=== PATIENT | female | born 1950 | race Caucasian/White ===

== ENCOUNTER 2017-02-21 16:41 | Emergency (ER) | payer MEDICARE, BC ==
[~2017-02-21] VITALS: Ht 167.6 cm; Wt 73.0 kg
[2017-02-21 16:56] VITALS: BP 140/66; PULSE 68; RESP 18; TEMP 97.9; O2SAT 99
[2017-02-21] MEDS ORDERED: VYTO10TA9 PO (17:13)
[2017-02-21] MEDS ORDERED: ATEN50TA PO (17:13)
[2017-02-21] MEDS ORDERED: ASPI325T PO (17:13)
[2017-02-21] MEDS ORDERED: OMEP20TA PO (17:14)
[2017-02-21] MEDS ORDERED: TETANUS/DIPHTHERIA TOXOID ADULT 0.5 ML VIAL IM ONE (17:30)
--- NOTE | 2017-02-21 17:55 | PD ---
HPI Chief Complaint: Laceration/Skin Injury Time Seen by Provider: 17:28 Travel History International Travel<30 days: No Contact w/Intl Traveler<30days: No Traveled to known affect area: No History of Present Illness HPI 66-year-old female presents emergency department after twisting her left ankle falling to the ground and sustained a small laceration to the right forehead. She denies loss of consciousness. Patient is not anticoagulated. Patient denies headache, neck pain, visual changes, chest pain, shortness of breath, abdominal pain, nausea vomiting diarrhea. She has mild pain at the left lateral malleolus. Small laceration to the right side of the forehead. Symptom severity is moderate. Pain in the ankles aggravated by weightbearing, relieved with rest. Tetanus immunization unknown. PFSH Past Medical History Hx Anticoagulant Therapy: Yes (ASA) ?: Not Social History Tobacco Use: No Allergies-Medications (Allergen,Severity, Reaction): Coded Allergies: heparin (Verified Allergy, Severe, Bleeding, 02/21/17) Reported Meds & Prescriptions Reported Meds & Active Scripts Active Reported Omeprazole 20 Mg Tab 20 Mg PO DAILY Vytorin (Ezetimibe-Simvastatin) 10-40 Mg Tab 1 Tab PO HS Aspirin 325 Mg Tab 325 Mg PO DAILY Atenolol 50 Mg Tab 50 Mg PO BID Review of Systems Except as stated in HPI: all other systems reviewed are Neg Physical Exam Narrative GENERAL: Well-nourished, well-developed patient. SKIN: Focused skin assessment warm/dry. 0.5 cm laceration right forehead. HEAD: Normocephalic. EYES: No scleral icterus. No injection or drainage. NECK: Supple, trachea midline. No JVD or lymphadenopathy. No cervical spine tenderness. CARDIOVASCULAR: Regular rate and rhythm without murmurs, gallops, or rubs. RESPIRATORY: Breath sounds equal bilaterally. No accessory muscle use. GASTROINTESTINAL: Abdomen soft, non-tender, nondistended. MUSCULOSKELETAL: No cyanosis, or edema. Left lower extremity: Notable tenderness and swelling to the left lateral malleolus. Ankle is stable. Normal alignment. 2+ distal pulses. Normal sensation. BACK: Nontender without obvious deformity. No CVA tenderness. Data Data Last Documented VS Vital Signs Date Time Temp Pulse Resp B/P (MAP) Pulse Ox O2 Delivery O2 Flow Rate FiO2 02/21/17 16:56 97.9 68 18 140/66 (90) 99 Orders Orders Tetanus/Diphtheria Tox Adult (Tetanus/Di (02/21/17 17:30) Ankle, Complete (Jac2dep) (02/21/17 ) Splint Or Brace Apply/Monitor (02/21/17 18:33) MDM Medical Decision Making Medical Screen Exam Complete: Yes Emergency Medical Condition: Yes Differential Diagnosis Facial laceration, ankle sprain, ankle fracture Narrative Course 66-year-old female presents emergency department after twisting her left ankle falling to the ground and sustained a small laceration to the right forehead. She denies loss of consciousness. Patient is not anticoagulated. Patient denies headache, neck pain, visual changes, chest pain, shortness of breath, nausea vomiting diarrhea. She has mild pain at the left lateral malleolus. Small laceration to the right side of the forehead. Wound was repaired with sutures. X-ray of the left ankle reveal small avulsion fracture of the lateral malleolus probably of the proximal anterior talofibular ligament judgment. Patient put in a posterior short leg splint instructed to follow-up with ortho. Post-splint application recheck: Extremities and good alignment and neurovascularly intact. Sutures to be removed in 5 days. Patient verbalizes understanding and agrees to plan. Procedures Procedure Narrative LACERATION LOCATION: Forehead LENGTH: 0.5 CM NUMBER OF STITCHES/JESSIE: [3] REPAIR: The area of the laceration was prepped with Betadine and sterilely draped. The laceration was infiltrated with [1% lidocaine]. The wound was copiously irrigated and explored without evidence of foreign body, tendon injury or neurovascular injury. The wound was closed using [6-0 fast gut]. This was a [-single] layer repair. A sterile dressing was applied. The patient was advised to keep the dressing clean and dry. Patient tolerated the procedure well. Diagnosis Primary Impression: Facial laceration Qualified Codes: S01.81XA - Laceration without foreign body of other part of head, initial encounter Additional Impression: Avulsion fracture of left ankle Qualified Codes: S82.892A - Other fracture of left lower leg, initial encounter for closed fracture Referrals: Orthopedist Additional Instructions: The splint stay in place until follow-up with with her. Ice and elevate the extremity. Sutures need to be removed in 5 days. Avoid getting the sutures wet. Take [id number] Motrin and/or Tylenol as needed for pain. Disposition: 01 DISCHARGE HOME Condition: Stable Yaneth Le Feb 21, 2017 17:55
--- NOTE | 2017-02-21 18:17 | RADRPT ---
EXAM DATE/TIME: 02/21/2017 17:42 [facility] COMPARISON: No previous studies available for comparison. INDICATIONS : Left lateral ankle pain with swelling post fall. MEDICAL HISTORY : None. SURGICAL HISTORY : None. ENCOUNTER: Initial ACUITY: 1 day PAIN SCORE: 2/10 LOCATION: Left lateral ankle FINDINGS: There is a lateral predominant soft tissue swelling. A tiny, minimally displaced avulsion fracture fr agment is seen at the tip of the lateral malleolus. No other fractures are demonstrated. No subluxati ons. CONCLUSION: Minimally displaced avulsion fracture fragment of the tip of the lateral malleolus, probably of the p roximal anterior talofibular ligament attachment. No other fractures. No subluxation. David Graves MD on February 21, 2017 at 18:15 Board Certified Radiologist. This report was verified electronically.
== END 2017-02-21 19:28 | disposition home or self-care (01) ==
LOC: PHEFT 16:41
DX: S01.81XA Laceration without foreign body of other part of head, initial encounter (principal); S82.892A Other fracture of left lower leg, initial encounter for closed fracture; X50.1XXA Overexertion from prolonged static or awkward postures, initial encounter
CPT/HCPCS: 12011; 29515; 73610; 90471; 90714; 99283; E0113